=== PATIENT | female | born 1955 | race Caucasian/White ===

== ENCOUNTER → 2017-07-21 | Outpatient (CLI) | payer BC ==
[~2017-07-21] MED LIST: BUPR-83 PO; MIRA1TAB3 PO; OYST500T47 PO
--- NOTE | 2017-07-21 15:32 | MAMMOGRAPHY REPORT ---
BILATERAL DIGITAL SCREENING MAMMOGRAM WITH CAD: 07/21/2017 CLINICAL HISTORY: Routine screening. Patient has no complaints. TECHNIQUE: Current study was also evaluated with a Computer Aided Detection (CAD) system. Bilateral CC and MLO views were obtained. COMPARISON: Comparison is made to exams dated: 07/19/2016 mammogram, 07/16/2015 mammogram, 07/10/2014 m ammogram, 01/17/2014 mammogram, 07/17/2013 ultrasound, and 07/17/2013 mammogram - [facility]. BREAST COMPOSITION: The tissue of both breasts is heterogeneously dense, which may obscure small mas ses. FINDINGS: No suspicious masses, calcifications, or areas of architectural distortion are noted in ei ther breast. There has been no significant interval change compared to prior exams. IMPRESSION: ACR BI-RADS CATEGORY 1: NEGATIVE There is no mammographic evidence of malignancy. A 1 year screening mammogram is recommended. The pa tient will receive written notification of the results. Approximately 10% of breast cancers are not detected with mammography. A negative mammographic report should not delay biopsy if a clinically suggestive mass is present. Mine Huston M.D. ah/:07/21/2017 07:38:51 Psychiatric Orderly: June HAMMONDS(Patsy)(M), [facility] letter sent: Normal 1/2 BI-RADS Code: ACR BI-RADS Category 1: Negative
== END | disposition home or self-care (01) ==
LOC: C.MAMM 07:10
PROVIDERS: ATTEND Family Medicine
DX: Z12.31 Encounter for screening mammogram for malignant neoplasm of breast (principal)

== ENCOUNTER → 2018-01-31 | Outpatient (CLI) | payer OTHER ==
--- NOTE | 2018-01-31 09:30 | DIAGNOSTIC IMAGING REPORT ---
CHEST 2 VIEWS ROUTINE HISTORY: Atypical chest pain. COMPARISON: Chest 10/07/2013. FINDINGS: The lungs are clear. The heart is normal in size. No pleural effusions. No pneumothorax. Cervical spinal fusion hardware is again noted. IMPRESSION: No significant change compared to the prior study. No acute process. Electronically signed by: North Samaniego M.D. 01/31/2018 9:28 AM Dictated Date/Time: 01/31/2018 9:27 AM
== END | disposition home or self-care (01) ==
LOC: C.RAD1850 09:09
PROVIDERS: ATTEND Family Medicine
DX: R07.89 Other chest pain (principal)

== ENCOUNTER → 2018-02-02 | Outpatient (CLI) | payer OTHER ==
[~2018-02-02] MED LIST changes: +OPTIRAY 320 IV PRN
--- NOTE | 2018-02-02 16:00 | DIAGNOSTIC IMAGING REPORT ---
(CHEST FOR PE) ANGIO WITH CT DOSE: 241.39 mGy.cm HISTORY: 62 years-old Female with . Acute shortness of breath with acute atypical chest pain TECHNIQUE: Multiple CTA images of the chest were obtained after the intravenous administration of 92 ml Optiray 320. Coronal and sagittal MIPS were obtained from the axial data set and were submitted for review. A dose lowering technique was utilized adhering to the principles of ALARA. COMPARISON: Chest radiograph 01/31/2018. FINDINGS: CTA: Heart is normal in size without pericardial effusion. The thoracic aorta is normal in both course and caliber without aneurysm or dissection. There is moderate atherosclerosis of the aortic arch and proximal great vessels which appear to be patent. The pulmonary arterial tree is opacified to level of the proximal subsegmental branches and demonstrates no focal filling defects to suggest pulmonary thromboembolic disease. CT CHEST: Thyroid is homogeneous without dominant nodule identified. Nonenlarged lymph nodes are seen throughout the mediastinum, likely physiologic. No pathologic adenopathy identified. Mild emphysema without pneumothorax, pleural effusion or focal airspace consolidation. There is mild dependent subsegmental bibasilar atelectasis. The inferior most lung bases are not imaged. Central airways are patent. No overt pulmonary edema. No acute abnormality of the imaged upper abdomen. Calcifications of the left breast parenchyma are noted. Fusion hardware of the lower cervical spine. Bones appear intact. IMPRESSION: 1. No acute intrathoracic abnormality identified, specifically no acute aortic pathology or evidence of pulmonary thromboembolic disease. 2. No lobar airspace consolidation or pathologic adenopathy. 3. Mild emphysema. The above report was generated using voice recognition software. It may contain grammatical, syntax or spelling errors. Electronically signed by: Aidan Turner M.D. 02/02/2018 3:58 PM Dictated Date/Time: 02/02/2018 3:53 PM
== END | disposition home or self-care (01) ==
LOC: C.CTS 15:11
PROVIDERS: ATTEND Family Medicine
DX: R07.89 Other chest pain (principal); R06.09 Other forms of dyspnea